=== PATIENT | male | born 1945 | race African-American/Black ===

== ENCOUNTER → 2018-01-11 | Outpatient (CLI) | payer MEDICARE, MEDICAID ==
[~2018-01-11] MED LIST: AMLO10TA80 PO; METF500T PO
== END | disposition home or self-care (01) ==
LOC: LAB 11:01
PROVIDERS: ATTEND Specialist
DX: R06.02 Shortness of breath (principal)
CPT/HCPCS: 71046

== ENCOUNTER 2018-05-23 05:54 | Inpatient (IN) | payer MEDICARE, MEDICAID ==
[~2018-05-23] VITALS: Ht 175.3 cm; Wt 85.8 kg
[2018-05-23] VITALS (9 sets, daily range): BP systolic 130–189; BP diastolic 58–104
[2018-05-23 07:37] LABS: BASOPHILS % 0.7 % (0.0-2.0); EOSINOPHILS % 1.5 % (0.0-5.0); HEMATOCRIT. 36.8 % (42.0-52.0); MEAN CORPUSCULAR HEMOGLOBIN 27.7 pg (28.0-32.0); MEAN PLATELET VOLUME 8.8 fl (7.4-10.4); MONOCYTES % 10.4 % (2.0-8.0); NEUTROPHILS % 53.4 % (40.0-76.0); PLATELET 199 x1000/uL (130-400); RED BLOOD CELL COUNT 4.33 mill/uL (4.7-6.1); RED CELL DISTRIBUTION WIDTH 14.7 % (11.6-14.6)
[2018-05-23 07:45] LABS: INR 1.1; PARTIAL THROMBOPLASTIN TIME 27.3 sec (23.4-31.0); PROTHROMBIN TIME 10.7 sec (9.1-11.1)
[2018-05-23] MEDS ORDERED: LIDOCAINE HCL/PF 1% 10 MG/ML 5ML VIAL ONE ×2 (07:51→08:15)
[2018-05-23] MEDS ORDERED: ONDANSETRON HCL 4MG/2ML INJ ONE (08:15)
[2018-05-23] MEDS ORDERED: SUCCINYLCHOLINE CHLORIDE 200MG/10ML IV ONE (08:15)
[2018-05-23] MEDS ORDERED: EPHEDRINE SULFATE 50MG/ML VIAL ONE (08:15)
[2018-05-23] MEDS ORDERED: NEOSTIGMINE METHYLSULFATE 1MG/ML 10 ML VIAL ONE (08:15)
[2018-05-23] MEDS ORDERED: PROPOFOL 200MG/20ML VIAL IV ONE (08:15)
[2018-05-23] MEDS ORDERED: ROCURONIUM BROMIDE 10MG/ML VIAL 5ML IV ONE ×2 (08:15→08:19)
[2018-05-23] MEDS ORDERED: MIDAZOLAM HCL 2 MG/2 ML VIAL ONE (08:15)
[2018-05-23] MEDS ORDERED: FENTANYL CITRATE/PF 50MCG/ML 2ML VIAL ONE (08:15)
[2018-05-23] MEDS ORDERED: CEFAZOLIN SODIUM 1000MG/VIAL ONE (08:15)
[2018-05-23] MEDS ORDERED: SODIUM CHLORIDE 0.9% 10ML VIAL ONE (08:15)
[2018-05-23] MEDS ORDERED: GLYCOPYRROLATE 0.2 MG/ML 2ML VIAL ONE (08:15)
[2018-05-23] MEDS ORDERED: PHENYLEPHRINE HCL 10 MG/ML 1ML (IV VIAL) IV ONE (08:16)
[2018-05-23] MEDS ORDERED: METOCLOPRAMIDE HCL 10MG/2ML VIAL ONE (08:16)
[2018-05-23] MEDS ORDERED: ACETAMINOPHEN 325MG TABLET PO PRN (10:15)
[2018-05-23] MEDS ORDERED: ATROPINE SULFATE 1MG/10ML SYR IV PRN (10:15)
[2018-05-23] MEDS ORDERED: MEPERIDINE HCL/PF 25MG/ML CPJ IV PRN (10:45)
[2018-05-23] MEDS ORDERED: ONDANSETRON HCL 4MG/2ML INJ IV PRN ×2 (10:45→16:15)
[2018-05-23] MEDS ORDERED: SODIUM CHLORIDE 0.9% 1,000 ML IV ONE (11:00)
[2018-05-23] MEDS: HYDROMORPHONE HCL/PF 2MG/ML CPJ IV PRN ×2 (12:42→12:56)
[2018-05-23] MEDS: AMLODIPINE 10MG TABLET PO SCH (14:17)
[2018-05-23] MEDS ORDERED: DEXTROSE 50% WATER 50ML SYRINGE IV PRN (15:00)
[2018-05-23] MEDS ORDERED: HYDRALAZINE 20MG/ML VIAL IV SCH (15:00)
[2018-05-23] MEDS ORDERED: HEPARIN SODIUM 1,000 UNIT/1ML VIAL IV ONE (15:36)
[2018-05-23] MEDS: BLOOD SUGAR DIAGNOSTIC STRIP TEST SCH ×2 (16:24→20:07)
[2018-05-23] MEDS: METFORMIN HCL 500MG TABLET PO SCH (16:34)
[2018-05-23] MEDS: APIXABAN 5 MG TABLET PO SCH (16:34)
[2018-05-23] MEDS: INSULIN LISPRO 100 UNITS/ML SUBCUT SCH ×2 (16:36→20:22)
[2018-05-23] MEDS ORDERED: INSU100I19 SQ (19:42)
[2018-05-23] MEDS ORDERED: APIX5TAB PO (19:42)
[2018-05-23] MEDS ORDERED: BENA40TA9 PO (19:42)
[2018-05-23] MEDS ORDERED: ASPI-986 PO (19:42)
[2018-05-23] MEDS ORDERED: CLONIDINE 0.1MG TABLET PO PRN (19:45)
[2018-05-23] MEDS ORDERED: MEDICATION NOT ON FORMULARY EA (Benazepril Hcl 1 TAB) PO SCH (19:45)
[2018-05-23] MEDS: BENAZEPRIL 10MG TABLET PO SCH (20:24)
[2018-05-23] MEDS ORDERED: MEDICATION NOT ON FORMULARY EA (Benazepril Hcl 40 MG) PO SCH (21:00)
[2018-05-23] MEDS ORDERED: HYDRALAZINE 20MG/ML VIAL IV NR (21:56)
[2018-05-24] VITALS (8 sets, daily range): BP systolic 132–156; BP diastolic 59–70
[2018-05-24 06:26] LABS: BASOPHILS % 0.5 % (0.0-2.0); EOSINOPHILS % 0.2 % (0.0-5.0); HEMATOCRIT. 34.6 % (42.0-52.0); HEMOGLOBIN. 11.3 g/dL (14.0-18.0); LYMPHOCYTES % 17.2 % (20.0-50.0); MEAN CORPUSCULAR HEMOGLOBIN 27.6 pg (28.0-32.0); MEAN CORPUSCULAR VOLUME 84.7 fL (80.0-94.0); MEAN PLATELET VOLUME 9.2 fl (7.4-10.4); MONOCYTES % 10.7 % (2.0-8.0); NEUTROPHILS % 71.4 % (40.0-76.0); PLATELET 189 x1000/uL (130-400); RED BLOOD CELL COUNT 4.09 mill/uL (4.7-6.1); RED CELL DISTRIBUTION WIDTH 14.8 % (11.6-14.6)
[2018-05-24 06:46] LABS: CHLORIDE 111 mEq/L (98-107)
[2018-05-24] MEDS: BLOOD SUGAR DIAGNOSTIC STRIP TEST SCH ×2 (06:58→11:38)
[2018-05-24] MEDS: METFORMIN HCL 500MG TABLET PO SCH (07:20)
[2018-05-24] MEDS: INSULIN LISPRO 100 UNITS/ML SUBCUT SCH ×2 (08:26→13:11)
[2018-05-24] MEDS: AMLODIPINE 10MG TABLET PO SCH (08:26)
[2018-05-24] MEDS: BENAZEPRIL 10MG TABLET PO SCH (08:26)
[2018-05-24] MEDS: APIXABAN 5 MG TABLET PO SCH (08:26)
[2018-05-24] MEDS ORDERED: MEDICATION NOT ON FORMULARY EA (Benazepril Hcl 40 MG) PO SCH (09:00)
== END 2018-05-24 14:45 | disposition home or self-care (01) | DRG 175 ==
LOC: CCL 05:54 → 3WST 05:55
PROVIDERS: ADMIT Internal Medicine Clinical Cardiac Electrophysiology; ATTEND Internal Medicine Clinical Cardiac Electrophysiology
PROC: 02583ZZ Destruction of Conduction Mechanism, Percutaneous Approach (ICD-10-PCS; principal; 2018-05-23)
PROC: 02K83ZZ Map Conduction Mechanism, Percutaneous Approach (ICD-10-PCS; 2018-05-23)
PROC: 4A023FZ Measurement of Cardiac Rhythm, Percutaneous Approach (ICD-10-PCS; 2018-05-23)
DX: I48.3 Typical atrial flutter (principal); E11.9 Type 2 diabetes mellitus without complications; I44.1 Atrioventricular block, second degree; I10 Essential (primary) hypertension; Z95.0 Presence of cardiac pacemaker; Z87.891 Personal history of nicotine dependence
CPT/HCPCS: 36415; 80048; 82962; 93005; 93613; 93620; 93653; C1731; C1732; C1759; C1893; J0330; J0360; J0690; J1170; J1644; J1815; J2175; J2250; J2370; J2405; J2704; J2710; J2765; J3010; J3490

== ENCOUNTER 2022-02-14 11:09 | Inpatient (IN) | payer MEDICARE, MEDICAID ==
[~2022-02-14] VITALS: Ht 175.3 cm; Wt 66.0 kg
[~2022-02-14 11:09] MED LIST changes: -AMLO10TA80 PO; +AMLO5TAB88 PO; +APIX2.5T PO; +ASPI-986 PO; +GABA-529 PO; +HYDR-4001 PO; -METF500T PO; +OLME40TA18 PO; +TRIA1TAB94 PO
[2022-02-14] MEDS ORDERED: ASPIRIN 325MG EC TABLET PO ONE (11:30)
[2022-02-14] MEDS ORDERED: FUROSEMIDE 40MG/4ML VIAL IVP ONE (11:45)
[2022-02-14 12:24] LABS: HEMATOCRIT. 33.5 % (42.0-52.0); HEMOGLOBIN. 10.6 g/dL (14.0-18.0); LYMPHOCYTES % 21.1 % (20.0-50.0); MEAN CORPUSCULAR HEMOGLOBIN 27.2 pg (28.0-32.0); MEAN CORPUSCULAR VOLUME 85.8 fL (80.0-94.0); MEAN PLATELET VOLUME 8.5 fl (7.4-10.4); MONOCYTES % 8.4 % (2.0-8.0); NEUTROPHILS % 68.5 % (40.0-76.0); PLATELET 287 x1000/uL (130-400); RED BLOOD CELL COUNT 3.91 mill/uL (4.7-6.1); RED CELL DISTRIBUTION WIDTH 16.6 % (11.6-14.6)
[2022-02-14 13:22] LABS: CHLORIDE 108 mEq/L (98-107)
[2022-02-14] MEDS ORDERED: ASPIRIN 325MG EC TABLET PO SCH (13:45)
[2022-02-14] MEDS ORDERED: FUROSEMIDE 100MG/10ML VIAL IVP SCH (13:45)
[2022-02-14] MEDS ORDERED: ONDANSETRON HCL 4MG/2ML INJ IV PRN (14:45)
[2022-02-14] MEDS ORDERED: CLONIDINE 0.1MG TABLET PO PRN (14:45)
[2022-02-14] MEDS ORDERED: ACETAMINOPHEN 325MG TABLET PO PRN (14:45)
[2022-02-14] MEDS ORDERED: DIPHENHYDRAMINE 50MG/ML VIAL IV PRN (14:45)
[2022-02-14] MEDS ORDERED: IPRATROPIUM/ALBUTEROL 0.5-3(2.5)MG/3ML NEB HHN PRN (14:45)
[2022-02-14 16:30] VITALS: BP 156/86
[2022-02-14] MEDS: GABAPENTIN 100MG CAPSULE PO SCH (17:38)
[2022-02-14] MEDS: APIXABAN 2.5 MG TABLET PO SCH (17:39)
[2022-02-14 20:00] VITALS: BP 137/74
[2022-02-14] MEDS ORDERED: DEXTROSE 50% WATER 50ML SYRINGE IV PRN ×3 (23:00)
[2022-02-14] MEDS: BLOOD SUGAR DIAGNOSTIC STRIP TEST SCH (23:06)
[2022-02-14] MEDS: INSULIN LISPRO 100 UNITS/ML SUBCUT SCH (23:13)
[2022-02-15] VITALS: BP 153/85
[2022-02-15 04:00] VITALS: BP 145/60
[2022-02-15] MEDS: BLOOD SUGAR DIAGNOSTIC STRIP TEST SCH ×4 (05:51→20:26)
[2022-02-15] MEDS: INSULIN LISPRO 100 UNITS/ML SUBCUT SCH ×4 (06:34→21:20)
[2022-02-15 06:40] LABS: BASOPHILS % 0.6 % (0.0-2.0); EOSINOPHILS % 2.1 % (0.0-5.0); HEMATOCRIT. 27.6 % (42.0-52.0); HEMOGLOBIN. 9.1 g/dL (14.0-18.0); MEAN CORPUSCULAR HEMOGLOBIN 27.9 pg (28.0-32.0); MONOCYTES % 11.2 % (2.0-8.0); NEUTROPHILS % 61.1 % (40.0-76.0); PLATELET 259 x1000/uL (130-400); RED BLOOD CELL COUNT 3.28 mill/uL (4.7-6.1); RED CELL DISTRIBUTION WIDTH 15.9 % (11.6-14.6)
[2022-02-15] MEDS ORDERED: BLOOD SUGAR DIAGNOSTIC STRIP TEST SCH ×2 (07:10)
[2022-02-15] MEDS ORDERED: INSULIN LISPRO 100 UNITS/ML SUBCUT SCH ×2 (07:40)
[2022-02-15 07:52] VITALS: BP 108/52
[2022-02-15 07:55] LABS: CHLORIDE 112 mEq/L (98-107)
[2022-02-15] MEDS: APIXABAN 2.5 MG TABLET PO SCH ×2 (08:54→17:33)
[2022-02-15] MEDS: GABAPENTIN 100MG CAPSULE PO SCH ×2 (08:54→17:33)
[2022-02-15] MEDS: AMLODIPINE 5MG TABLET PO SCH (08:55)
[2022-02-15] MEDS: FUROSEMIDE 40MG/4ML VIAL IV SCH (08:55)
[2022-02-15 12:00] VITALS: BP 146/80
[2022-02-15] MEDS: ASPIRIN 81MG TABLET PO SCH (12:41)
[2022-02-15 16:00] VITALS: BP 145/48
[2022-02-15 20:00] VITALS: BP 128/62
[2022-02-15] MEDS: CARVEDILOL 3.125 MG TABLET PO SCH (21:19)
[2022-02-15] MEDS: INSULIN GLARGINE 100 UNITS/ML SUBCUT SCH (21:20)
[2022-02-16] VITALS (7 sets, daily range): BP systolic 100–126; BP diastolic 48–69
[2022-02-16 00:48] LABS: CREATINE KINASE 245 IU/L (39-308)
[2022-02-16] MEDS: BLOOD SUGAR DIAGNOSTIC STRIP TEST SCH ×4 (05:40→21:19)
[2022-02-16] MEDS: INSULIN LISPRO 100 UNITS/ML SUBCUT SCH ×4 (05:40→21:21)
[2022-02-16] MEDS: CARVEDILOL 3.125 MG TABLET PO SCH ×2 (09:00→21:00)
[2022-02-16] MEDS: AMLODIPINE 5MG TABLET PO SCH (09:09)
[2022-02-16] MEDS: APIXABAN 2.5 MG TABLET PO SCH ×2 (09:09→17:19)
[2022-02-16] MEDS: ASPIRIN 81MG TABLET PO SCH (09:09)
[2022-02-16] MEDS: GABAPENTIN 100MG CAPSULE PO SCH ×2 (09:10→17:19)
[2022-02-16] MEDS: FUROSEMIDE 40MG/4ML VIAL IV SCH (09:10)
[2022-02-16] MEDS: INSULIN GLARGINE 100 UNITS/ML SUBCUT SCH ×2 (09:53→21:21)
[2022-02-16 10:38] LABS: BASOPHILS % 0.4 % (0.0-2.0); EOSINOPHILS % 2.3 % (0.0-5.0); HEMATOCRIT. 28.9 % (42.0-52.0); HEMOGLOBIN. 9.6 g/dL (14.0-18.0); LYMPHOCYTES % 29.9 % (20.0-50.0); MEAN CORPUSCULAR HEMOGLOBIN 27.6 pg (28.0-32.0); MEAN CORPUSCULAR VOLUME 83.4 fL (80.0-94.0); MEAN PLATELET VOLUME 8.3 fl (7.4-10.4); MONOCYTES % 9.2 % (2.0-8.0); NEUTROPHILS % 58.2 % (40.0-76.0); PLATELET 274 x1000/uL (130-400); RED BLOOD CELL COUNT 3.46 mill/uL (4.7-6.1); RED CELL DISTRIBUTION WIDTH 16.6 % (11.6-14.6)
[2022-02-16 11:08] LABS: CREATINE KINASE 226 IU/L (39-308)
[2022-02-16] MEDS ORDERED: REGADENOSON 0.4 MG/5 ML IV SCH (13:15)
[2022-02-16 14:48] LABS: CHLORIDE 109 mEq/L (98-107)
[2022-02-17 03:43] VITALS: BP 109/50
[2022-02-17] MEDS: INSULIN LISPRO 100 UNITS/ML SUBCUT SCH ×2 (06:09→12:10)
[2022-02-17] MEDS: BLOOD SUGAR DIAGNOSTIC STRIP TEST SCH ×2 (06:09→12:04)
[2022-02-17 07:58] LABS: BASOPHILS % 0.4 % (0.0-2.0); EOSINOPHILS % 0.9 % (0.0-5.0); HEMATOCRIT. 30.8 % (42.0-52.0); LYMPHOCYTES % 19.6 % (20.0-50.0); MEAN CORPUSCULAR HEMOGLOBIN 27.3 pg (28.0-32.0); MEAN CORPUSCULAR VOLUME 83.8 fL (80.0-94.0); MEAN PLATELET VOLUME 8.9 fl (7.4-10.4); MONOCYTES % 8.7 % (2.0-8.0); NEUTROPHILS % 70.4 % (40.0-76.0); PLATELET 275 x1000/uL (130-400); RED BLOOD CELL COUNT 3.68 mill/uL (4.7-6.1); RED CELL DISTRIBUTION WIDTH 16.3 % (11.6-14.6)
[2022-02-17 08:00] VITALS: BP_SYST 103; BP_SYST 113; BP_SYST 122; BP_DIAS 54; BP_DIAS 62; BP_DIAS 64
[2022-02-17] MEDS ORDERED: REGADENOSON 0.4 MG/5 ML IV ONE (08:00)
[2022-02-17] MEDS: CARVEDILOL 3.125 MG TABLET PO SCH (08:28)
[2022-02-17] MEDS: APIXABAN 2.5 MG TABLET PO SCH (08:28)
[2022-02-17] MEDS: ASPIRIN 81MG TABLET PO SCH (08:28)
[2022-02-17] MEDS: FUROSEMIDE 40MG/4ML VIAL IV SCH (08:28)
[2022-02-17] MEDS: AMLODIPINE 5MG TABLET PO SCH (08:28)
[2022-02-17] MEDS: GABAPENTIN 100MG CAPSULE PO SCH (08:28)
[2022-02-17] MEDS: INSULIN GLARGINE 100 UNITS/ML SUBCUT SCH (09:21)
[2022-02-17] MEDS ORDERED: ASPI-1160 PO (11:40)
[2022-02-17] MEDS ORDERED: LANTUSUD SUBCUT (11:40)
[2022-02-17] MEDS ORDERED: COR3 PO (11:40)
[2022-02-17] MEDS ORDERED: FURO40TA5 MT (11:40)
[2022-02-17 12:27] VITALS: BP 130/52
[2022-02-17 13:12] VITALS: BP 130/52
[2022-03-11] MEDS ORDERED: COR3 PO (12:10)
[2022-03-11] MEDS ORDERED: LANTUSUD SUBCUT (12:11)
== END 2022-02-17 16:40 | disposition home or self-care (01) | DRG 48 ==
LOC: ER 11:32 → 8WST 13:07 → EDBEDREQTM 13:09 → EDBEDREQ 13:09 → ENRESERV 15:22
PROVIDERS: ADMIT Internal Medicine; ATTEND Internal Medicine
PROC: 4B02XSZ Measurement of Cardiac Pacemaker, External Approach (ICD-10-PCS; 2022-02-16)
PROC: 4A02XM4 Measurement of Cardiac Total Activity, External Approach (ICD-10-PCS; principal; 2022-02-17)
PROC: 3E033HZ Introduction of Radioactive Substance into Peripheral Vein, Percutaneous Approach (ICD-10-PCS; 2022-02-17)
DX: G90.8 Other disorders of autonomic nervous system (principal); I50.23 Acute on chronic systolic (congestive) heart failure; I42.0 Dilated cardiomyopathy; E11.22 Type 2 diabetes mellitus with diabetic chronic kidney disease; I13.0 Hypertensive heart and chronic kidney disease with heart failure and stage 1 through stage 4 chronic kidney disease, or unspecified chronic kidney disease; E11.51 Type 2 diabetes mellitus with diabetic peripheral angiopathy without gangrene; E11.65 Type 2 diabetes mellitus with hyperglycemia; I48.0 Paroxysmal atrial fibrillation; J84.9 Interstitial pulmonary disease, unspecified; I45.9 Conduction disorder, unspecified; N18.9 Chronic kidney disease, unspecified; E78.5 Hyperlipidemia, unspecified; I25.10 Atherosclerotic heart disease of native coronary artery without angina pectoris; J44.9 Chronic obstructive pulmonary disease, unspecified; Z95.0 Presence of cardiac pacemaker; Z87.891 Personal history of nicotine dependence; Z79.01 Long term (current) use of anticoagulants; Z79.82 Long term (current) use of aspirin
CPT/HCPCS: 36415; 71045; 78452; 80048; 80053; 80061; 82550; 82962; 83036; 83735; 83880; 84443; 84484; 85025; 85379; 87426; 93005; 93017; 93880; 93970; 97162; 99285; A9500; J1815; J1940; J2785